=== PATIENT | female | born 1995 | race Caucasian/White ===

== ENCOUNTER 2021-02-27 05:52 | Emergency (ER) | payer OTHER, BC ==
[2021-02-27 06:28] LABS: BHCG - Serum Negative (NEGATIVE); Pregs Control Bar Appear? YES (CONTROL BAR)
[2021-02-27 06:38] LABS: ALT (SGPT) 201 U/L (8-55); AST (SGOT) 286 U/L (5-34); Albumin 3.8 g/dL (3.5-5.0); Alkaline Phosphatase 85 U/L (40-110); Anion Gap 20 mmol/L (10-20); BUN (Urea Nitrogen) 8 mg/dL (7.0-18.7); Bilirubin, Total 0.2 mg/dL (0.2-1.2); Calc. Creatinine Clearance 0 mL/min (70-130); Carbon Dioxide 16 mmol/L (22-29); Chloride 109 mmol/L (98-107); Globulin 3.2 g/dL (2.4-3.5); Glucose 208 mg/dL (70-105); Lipase 18 U/L (8-78); Potassium 3.6 mmol/L (3.5-5.1); Sodium 141 mmol/L (136-145)
[2021-02-27 06:40] LABS: Hemoglobin 13.9 g/dL (12.0-16.0); Mean Corpuscular HGB CONC 29.5 g/dL (32.0-36.0); Mean Corpuscular Hemoglobin 29.3 pg (27.0-31.0); Mean Corpuscular Volume 99.3 fL (78.0-98.0); Mean Platelet Volume 6.7 fL (7.4-10.4); Platelet Count 346 thou/uL (130-400); RBC Distribution Width 13.5 % (11.5-14.5); Red Blood Cell (RBC) Count 4.75 mill/uL (4.20-5.40); White Blood Cell (WBC) Count 29.6 thou/uL (4.8-10.8)
[2021-02-27 06:41] LABS: Band 3 % (5-11); Lymphocytes 13 % (21-51); MDiff Complete? YES; Monocytes 6 % (0-10); Neutrophil 78 % (42-75); Platelet Morphology Comment Appears Adequate
[2021-02-27] MEDS ORDERED: Ketorolac Tromethamine 30 MG/ML VIAL ONE (07:43)
[2021-02-27] MEDS ORDERED: Morphine 4 MG/ML VIAL ONE ×2 (07:43→08:02)
[2021-02-27] MEDS ORDERED: Ondansetron PF 4 MG/2 ML Vial ONE (07:43)
[2021-02-27] MEDS ORDERED: Lactated Ringer's 1,000 ML ONE (08:02)
[2021-02-27] MEDS ORDERED: Sodium Chloride 0.9% 1,000 ML ONE (08:02)
== END 2021-02-27 08:22 | disposition short-term general hospital (02) ==
LOC: NAV ERS 05:52
DX: S30.1XXA Contusion of abdominal wall, initial encounter (principal); S36.113A Laceration of liver, unspecified degree, initial encounter; F10.129 Alcohol abuse with intoxication, unspecified; E87.8 Other disorders of electrolyte and fluid balance, not elsewhere classified; D72.829 Elevated white blood cell count, unspecified; J45.909 Unspecified asthma, uncomplicated; F17.290 Nicotine dependence, other tobacco product, uncomplicated; V47.5XXA Car driver injured in collision with fixed or stationary object in traffic accident, initial encounter
CPT/HCPCS: 70450; 71260; 72125; 74177; 80053; 80307; 83605; 83690; 84703; 85025; 93005; 96374; 96375; J1885; J2270; J2405; J7050; J7120